=== PATIENT | male | born 1950 | race Caucasian/White ===

== ENCOUNTER 2016-03-15 13:09 | Inpatient (IN) | payer OTHER ==
[~2016-03-15] VITALS: Ht 177.8 cm; Wt 82.3 kg
[~2016-03-15 13:09] MED LIST: ACIDOPHILUS PR1 EAC1 PO; ACIDOPHILUS1 EAC4 PO; ADULT LOW DOSE81 M1 PO; ADVAIR HFA120 INHALA IH; AMITRIPTYLINE H50 MG PO; AMLODIPINE BESYL5 MG PO; ASPIR-LOW81 MG PO; ATORVASTATIN CA40 MG PO; ATROVENT 00.5 MG/2.5 IH; BUSPAR5 MG PO; CALCIUM 600+D1 EACH PO; CALTRATE 6001 TABLE1 PO; CARDIZEM CD360 MG PO; CARDIZEM90 MG PO; CENTRUM SILVER1 EAC3 PO; CIPRO500 MG PO; COMBIVENT RESPIM4 GM IH; COZAAR25 MG PO; DALIRESP500 MCG PO; DILTIAZEM ER360 M1 PO; DILTIAZEM HCL360 MG PO; DOCUSATE SODIU100 MG PO; DOXYCYCLINE MO100 MG PO; DULERA 200 MCG/13 GM IH; DUONEB 2.5-0.5 M3 ML AEROSOL; DUONEB 2.5-0.5 M3 ML IH; ELAVIL50 MG PO; FLAGYL500 MG PO; FUROSEMIDE20 MG PO; GUAIFENESI100 MG/5 M PO; HEPARIN SO5000 UNITS SC; HYTRIN2 MG PO; IPRATR-ALBUTEROL3 ML IH; LEVOFLOXACIN500 MG PO; LEVOFLOXACIN750 MG PO; LIPITOR40 MG PO; LO-DOSE ASPIRIN81 M1 PO; LOPRESSOR25 MG PO; LOSARTAN POTASS25 MG PO; LOW DOSE ASPIRI81 M1 PO; MAXZIDE 75/501 EACH PO; MUCINEX600 MG PO; NAFCILLIN SODIUM2 GM IV; OMEPRAZOLE20 MG PO; ONDANSETRON4 MG/2 ML IV; OXAYDO5 MG PO; PANTOPRAZOLE SO40 MG PO; PREDNISONE10 MG PO; PREDNISONE20 MG PO; PRILOSEC20 MG PO; PROAIR HFA8.5 GM IH; PROBIOTIC1 EAC1 PO; REGULOID0.52 GM PO; ROXICODONE5 MG PO; SIMVASTATIN80 MG PO; TAZTIA XT360 MG PO; TERAZOSIN HCL2 MG PO; THEO-24200 MG PO; THEO-DUR,THEOC200 MG PO; THEOPHYLLINE A200 M1 PO; THEOPHYLLINE A300 M1 PO; TRIAMTERENE/HC1 EACH PO; XOPENEX1.25 MG/0. IH; ZITHROMAX250 MG PO; ZOLPIDEM TARTRAT5 MG PO
[2016-03-15 14:15] LABS: HEMATOCRIT 35.8 % (38.0-50.0); MCH 27.8 PG (29.0-34.0); MCHC 31.6 G/DL (30.0-36.0); MEAN PLAT.VOLUME 9.4 uM^3 (9.0-12.4); PLATELET COUNT 222 K/uL (156-360); RBC DIS.WIDTH-CV 16.8 % (11.8-14.6); RED BLOOD COUNT 4.07 M/uL (4.00-5.50); WHITE BLOOD COUNT 23.2 K/uL (4.1-10.2)
[2016-03-15 14:24] LABS: CHLORIDE 103 mEq/L (99-109); POTASSIUM 3.9 mEq/L (3.7-5.4); SODIUM 137 mEq/L (136-147)
[2016-03-15 14:26] LABS: GLUCOSE 166 mg/dL (70-99)
[2016-03-15 14:27] LABS: ANION GAP 11 MEQ/L (2-14)
[2016-03-15 14:28] LABS: TOTAL BILIRUBIN 0.8 mg/dL (0.0-1.0)
[2016-03-15 14:30] LABS: ALKALINE PHOSPHATASE 77 IU/L (3-129); GFR ESTIMATE (CALCULATED) 46 mL/min/
[2016-03-15 14:31] LABS: UREA NITROGEN (BUN) 24 mg/dL (9-23)
[2016-03-15 15:31] LABS: SAMPLE HEMOLYSIS CHECK 0; SAMPLE ICTERIC CHECK 0; SAMPLE LIPEMIA CHECK 0
[2016-03-15 15:50] LABS: THEOPHYLLINE 27.6 MCG/ML (10-20)
[2016-03-15] MEDS ORDERED: COMBIVENT RESPIM4 GM IH (16:18)
[2016-03-15] MEDS ORDERED: PERCOCET 7.51 TABLET PO (16:22)
[2016-03-15] MEDS ORDERED: THEO-24400 MG PO (16:27)
[2016-03-15] MEDS ORDERED: BUSPAR10 MG PO (16:27)
[2016-03-15] MEDS ORDERED: TRIAMTERENE/HC1 EACH PO (16:28)
[2016-03-15] MEDS ORDERED: PREDNISONE5 MG PO ×2 (16:28→16:29)
[2016-03-15] MEDS ORDERED: LEXAPRO10 MG PO (16:29)
[2016-03-15 16:37] LABS: BICARBONATE 25.5 mEq/L (22-26); CARBOXY HGB 1.4 % (0-5); COMMENTS - BLOOD GASES A+C+; DEVICE HHFNC; FI02 40 %; METHEMOGLOBIN 0.9 % (0-1.5); O2 FLOW 35 L/MIN; PCO2 35 mm Hg (35-45); PO2 56 mm Hg (80-100); SITE RR; TOTAL RESP RATE 19 resp/min; pH 7.47 (7.35-7.45)
[2016-03-15 18:49] LABS: TROP-I INTERPRETATION NEGATIVE; TROPONIN-I 0.01 ng/mL (0.0-0.30)
[2016-03-15 21:50] VITALS: BP 164/74
[2016-03-15 22:02] VITALS: BP 164/74
[2016-03-16] VITALS (7 sets, daily range): BP systolic 115–139; BP diastolic 57–69
[2016-03-16 00:48] LABS: TROP-I INTERPRETATION NEGATIVE; TROPONIN-I < 0.01 ng/mL (0.0-0.30)
[2016-03-16 07:04] LABS: HEMATOCRIT 31.6 % (38.0-50.0); MCH 28.1 PG (29.0-34.0); MCV 87.8 FL (86-99); MEAN PLAT.VOLUME 9.6 uM^3 (9.0-12.4); PLATELET COUNT 207 K/uL (156-360); RBC DIS.WIDTH-CV 16.7 % (11.8-14.6); RBC DIS.WIDTH-SD 53.7 % (39-53)
[2016-03-16 07:13] LABS: WHITE BLOOD COUNT 12.7 K/uL (4.1-10.2)
[2016-03-16 07:20] LABS: ANION GAP 14 MEQ/L (2-14); CHLORIDE 106 MEQ/L (99-109); GFR ESTIMATE (CALCULATED) 50 mL/min/; POTASSIUM 3.6 MEQ/L (3.7-5.4); SAMPLE HEMOLYSIS CHECK 0; SAMPLE ICTERIC CHECK 0; SAMPLE LIPEMIA CHECK 0; SODIUM 143 MEQ/L (136-147); UREA NITROGEN (BUN) 29 mg/dL (9-23)
[2016-03-16 07:23] LABS: GLUCOSE 118 mg/dL (70-99)
[2016-03-17 03:08] VITALS: BP 129/67
[2016-03-17 06:41] LABS: INFLUENZA A VIRAL ANTIGEN NEGATIVE; INFLUENZA B VIRAL ANTIGEN NEGATIVE
[2016-03-17 07:00] LABS: HEMATOCRIT 32.3 % (38.0-50.0); MCH 27.6 PG (29.0-34.0); MCHC 31.6 G/DL (30.0-36.0); MCV 87.3 FL (86-99); MEAN PLAT.VOLUME 9.2 uM^3 (9.0-12.4); NRBC (%) 0.2 /100 WBC (0-0); PLATELET COUNT 227 K/uL (156-360); RBC DIS.WIDTH-CV 17.1 % (11.8-14.6); RBC DIS.WIDTH-SD 54.5 % (39-53); WHITE BLOOD COUNT 13.5 K/uL (4.1-10.2)
[2016-03-17 07:20] LABS: EOSINOPHIL (%) 0 % (0-5); IMMATURE GRANULOCYTE (%) 0.7 % (0.0-0.7); IMMATURE GRANULOCYTE COUNT 0.1 K/uL; LYMPHOCYTE COUNT 0.2 K/uL (1.0-2.8); MONOCYTE (%) 3.8 % (3-12); MONOCYTE COUNT 0.5 K/uL (0-0.8); NEUTROPHIL (%) 94.1 % (45-76); NEUTROPHIL COUNT 12.7 K/uL (1.8-6.4)
[2016-03-17 07:29] LABS: ANION GAP 12 MEQ/L (2-14); CHLORIDE 112 MEQ/L (99-109); GFR ESTIMATE (CALCULATED) 54 mL/min/; GLUCOSE 143 mg/dL (70-99); POTASSIUM 3.8 MEQ/L (3.7-5.4); SAMPLE HEMOLYSIS CHECK 0; SAMPLE ICTERIC CHECK 0; SAMPLE LIPEMIA CHECK 0; SODIUM 146 MEQ/L (136-147); UREA NITROGEN (BUN) 36 mg/dL (9-23)
[2016-03-17 07:41] LABS: INTERNAL CONTROL VALID? YES
[2016-03-17 08:10] VITALS: BP 120/73
[2016-03-17 11:20] VITALS: BP 131/65
[2016-03-17 15:55] VITALS: BP 134/69
[2016-03-17 23:32] VITALS: BP 135/70
[2016-03-18 06:43] LABS: MCH 28.1 PG (29.0-34.0); MCHC 31.4 G/DL (30.0-36.0); MCV 89.5 FL (86-99); MEAN PLAT.VOLUME 9.9 uM^3 (9.0-12.4); PLATELET COUNT 232 K/uL (156-360); RBC DIS.WIDTH-CV 17.4 % (11.8-14.6); RBC DIS.WIDTH-SD 56.9 % (39-53); RED BLOOD COUNT 3.91 M/uL (4.00-5.50); WHITE BLOOD COUNT 13.3 K/uL (4.1-10.2)
[2016-03-18 07:00] LABS: EOSINOPHIL (%) 0 % (0-5); IMMATURE GRANULOCYTE (%) 1.3 % (0.0-0.7); IMMATURE GRANULOCYTE COUNT 0.2 K/uL; LYMPHOCYTE COUNT 0.4 K/uL (1.0-2.8); MONOCYTE (%) 3.6 % (3-12); MONOCYTE COUNT 0.5 K/uL (0-0.8); NEUTROPHIL (%) 91.9 % (45-76); NEUTROPHIL COUNT 12.2 K/uL (1.8-6.4)
[2016-03-18 07:06] LABS: ANION GAP 11 MEQ/L (2-14); CHLORIDE 111 MEQ/L (99-109); GFR ESTIMATE (CALCULATED) 50 mL/min/; GLUCOSE 131 mg/dL (70-99); SAMPLE HEMOLYSIS CHECK 0; SAMPLE ICTERIC CHECK 0; SAMPLE LIPEMIA CHECK 0; SODIUM 146 MEQ/L (136-147); UREA NITROGEN (BUN) 39 mg/dL (9-23)
[2016-03-18 08:26] VITALS: BP 142/70
[2016-03-18 11:39] VITALS: BP 146/71
[2016-03-18 15:30] VITALS: BP 137/71
[2016-03-18 23:05] VITALS: BP 138/71
[2016-03-19 07:42] VITALS: BP 148/92
[2016-03-19 07:48] LABS: HEMATOCRIT 35.7 % (38.0-50.0); MCHC 31.1 G/DL (30.0-36.0); MCV 89.9 FL (86-99); MEAN PLAT.VOLUME 9.5 uM^3 (9.0-12.4); NRBC (%) 0.2 /100 WBC (0-0); PLATELET COUNT 228 K/uL (156-360); RBC DIS.WIDTH-CV 17.3 % (11.8-14.6); RBC DIS.WIDTH-SD 57.5 % (39-53); RED BLOOD COUNT 3.97 M/uL (4.00-5.50); WHITE BLOOD COUNT 14.9 K/uL (4.1-10.2)
[2016-03-19 08:21] LABS: ANION GAP 9 MEQ/L (2-14); CHLORIDE 110 MEQ/L (99-109); GFR ESTIMATE (CALCULATED) 54 mL/min/; GLUCOSE 108 mg/dL (70-99); POTASSIUM 4.2 MEQ/L (3.7-5.4); SAMPLE HEMOLYSIS CHECK 0; SAMPLE ICTERIC CHECK 0; SAMPLE LIPEMIA CHECK 0; SODIUM 145 MEQ/L (136-147); UREA NITROGEN (BUN) 37 mg/dL (9-23)
[2016-03-19 08:43] LABS: EOSINOPHIL (%) 0 % (0-5); HEMATOLOGY COMMENT 1 SMEAR COMPATIBLE; IMMATURE GRANULOCYTE (%) 3.2 % (0.0-0.7); IMMATURE GRANULOCYTE COUNT 0.5 K/uL; LYMPHOCYTE COUNT 1.2 K/uL (1.0-2.8); MONOCYTE (%) 2.5 % (3-12); MONOCYTE COUNT 0.4 K/uL (0-0.8); NEUTROPHIL (%) 85.8 % (45-76); NEUTROPHIL COUNT 12.7 K/uL (1.8-6.4)
[2016-03-19] MEDS ORDERED: LEVOFLOXACIN750 MG PO (13:09)
[2016-03-19] MEDS ORDERED: PREDNISONE20 MG PO (13:11)
== END 2016-03-19 16:12 | disposition home health service (06) | DRG 190 ==
LOC: EME 13:09 → 4EAST 16:06 → 2EAST 16:06 → EDOF 16:06 → 4EAST 21:46 → 2EAST 03-16 20:34
PROVIDERS: Internal Medicine; Internal Medicine Pulmonary Disease; Nurse Practitioner Family
DX: J44.1 Chronic obstructive pulmonary disease with (acute) exacerbation (principal); J96.21 Acute and chronic respiratory failure with hypoxia; J18.9 Pneumonia, unspecified organism; N17.9 Acute kidney failure, unspecified; E87.6 Hypokalemia; I27.81 Cor pulmonale (chronic); J84.10 Pulmonary fibrosis, unspecified; I25.10 Atherosclerotic heart disease of native coronary artery without angina pectoris; I10 Essential (primary) hypertension; E78.5 Hyperlipidemia, unspecified; F41.9 Anxiety disorder, unspecified; F32.9 Major depressive disorder, single episode, unspecified; R00.0 Tachycardia, unspecified; Z98.61 Coronary angioplasty status; Z99.81 Dependence on supplemental oxygen; Z87.891 Personal history of nicotine dependence; Z79.52 Long term (current) use of systemic steroids; Z82.49 Family history of ischemic heart disease and other diseases of the circulatory system
CPT/HCPCS: 36600; 71020; 71250; 80048; 80053; 80198; 82803; 83880; 84484; 85025; 85027; 87449; 87502; 87651 90; 93005; 94640; 94640 76; 94667; 94668; 94760; 94799; 99202; 99281; 99285; G0424; J1650; J2920; J2930; J7030; J7512; J7644